=== PATIENT | female | born 1975 | race Caucasian/White ===

== ENCOUNTER 2020-10-19 14:33 | Emergency (ER) | payer BC, OTHER ==
[2020-10-19 18:54] LABS: HEMOGLOBIN 15.9 gm/dl (12.3-15.3); RED BLOOD COUNT 5.45 M/UL (4.00-5.10); WHITE BLOOD COUNT 3.5 K/UL (4.5-11.0)
[2020-10-19 19:06] LABS: BUN/CREATININE RATIO 23 (0-10)
[2020-10-19] MEDS ORDERED: ZITHROMAX500 MG PO (20:32)
== END 2020-10-19 21:00 | disposition home or self-care (01) ==
LOC: ER1 14:33
PROVIDERS: Preventive Medicine Occupational Medicine
DX: U07.1 COVID-19 (principal); E66.01 Morbid (severe) obesity due to excess calories; Z90.710 Acquired absence of both cervix and uterus
CPT/HCPCS: 36415; 71045; 80053; 85025; 93005; 99284; M0239

== ENCOUNTER 2021-04-13 13:38 | Emergency (ER) | payer BC ==
[~2021-04-13] VITALS: Ht 170.2 cm; Wt 114.3 kg
[~2021-04-13 13:38] MED LIST: ZITHROMAX500 MG PO
[2021-04-13] MEDS ORDERED: TESSALON PERLE100 MG PO (17:41)
== END 2021-04-13 19:05 | disposition home or self-care (01) ==
LOC: ER1 13:38
DX: Z23 Encounter for immunization (principal); U07.1 COVID-19; E11.9 Type 2 diabetes mellitus without complications; I10 Essential (primary) hypertension; Z90.710 Acquired absence of both cervix and uterus
CPT/HCPCS: 99284; M0243; U0002

== ENCOUNTER → 2021-11-26 | Outpatient (CLI) | payer BC ==
[~2021-11-26] MED LIST changes: +TESSALON PERLE100 MG PO
== END ==
LOC: KOH-I 14:01
DX: J11.1 Influenza due to unidentified influenza virus with other respiratory manifestations (principal); J20.9 Acute bronchitis, unspecified; R05.9 Cough, unspecified; J45.909 Unspecified asthma, uncomplicated
CPT/HCPCS: 71046